=== PATIENT | male | born 1945 | race Caucasian/White ===

== ENCOUNTER 2016-10-29 22:39 | Emergency (ER) | payer MEDICARE ==
[~2016-10-29] VITALS: Ht 160 cm; Wt 81.6 kg
[2016-10-29] MEDS ORDERED: PIOG45TA16 (23:14)
[2016-10-29] MEDS ORDERED: FOLI1TAB16 (23:14)
[2016-10-29] MEDS ORDERED: LOVA20TA2 (23:14)
[2016-10-29] MEDS ORDERED: SITA100T (23:14)
[2016-10-29] MEDS ORDERED: ATEN100T (23:14)
[2016-10-29] MEDS ORDERED: AMLO5TAB2 (23:15)
--- NOTE | 2016-10-29 23:28 | NUR ---
Patient is able to communicate in sign language. Daughter is present , states she will not translate. supervisor [facility] aware. Awaiting translation services.
--- NOTE | 2016-10-30 02:01 | NUR ---
Patient discharged to home in stable conditon. Written and verbal after care instructions given. Patient verbalizes understanding of instructions. Ambulated from ER with stable gait. All belongings with patient.
[2016-10-30 02:03] VITALS: BP 136/74
== END 2016-10-30 02:04 | disposition home or self-care (01) ==
LOC: ER 22:41
DX: R04.0 Epistaxis (principal); I10 Essential (primary) hypertension; E11.9 Type 2 diabetes mellitus without complications; E78.00 Pure hypercholesterolemia, unspecified; C50.921 Malignant neoplasm of unspecified site of right male breast; D64.9 Anemia, unspecified; Z79.82 Long term (current) use of aspirin
CPT/HCPCS: A4663

== ENCOUNTER 2023-09-16 10:39 | Inpatient (IN) | payer BC, MEDICARE ==
[~2023-09-16] VITALS: Ht 162.6 cm; Wt 68.0 kg
[2023-09-16] MEDS: BLOOD SUGAR DIAGNOSTIC 1 EACH STRIP VI SCH (06:47)
[~2023-09-16 10:39] MED LIST: AMLO-212; ATEN100T; FOLI1TAB94; LOVA20TA2; PIOG45TA65; SITA100T
[2023-09-16] MEDS: IV NORMAL SALINE 500 ML BAG IV ONE (11:08)
[2023-09-16 11:24] LABS: ABG HCO3 27.7 mmol/L (22.0-26.0); ABG PCO2 38.5 mmHg (35.0-48.0); ABG PH 7.475 (7.340-7.440); ABG PO2 46.7 mmHg (75.0-100.0); ABG SITE RIGHT RADIAL; ABG TOTAL HEMOGLOBIN 12.5 G/dL (12.0-16.0); AaDO2 85.6 mmHg; COHb 0.6 % (0.0-3.9); MetHb 0.1 % (0.0-1.5); O2Hb 84.9 % (94.0-97.0)
[2023-09-16 11:30] LABS: BASOPHILS % (AUTO) 0.1 % (0.0-2.0); HEMATOCRIT 34.1 % (31.2-41.9); HEMOGLOBIN 11.4 g/dL (10.9-14.3); LYMPHOCYTES # (AUTO) 0.1 K/uL (0.8-4.8); LYMPHOCYTES % (AUTO) 1.2 % (20.5-51.5); MEAN CORPUSCULAR HEMOGLOBIN 28.7 uug (24.7-32.8); MEAN CORPUSCULAR HGB CONC 34 g/dL (32.3-35.6); MEAN CORPUSCULAR VOLUME 85.8 fL (75.5-95.3); MONOCYTES # (AUTO) 0.2 K/uL (0.1-1.30); MONOCYTES % (AUTO) 2.1 % (0.0-11.0); NEUTROPHILS # (AUTO) 8.4 K/uL (1.8-8.9); NEUTROPHILS % (AUTO) 96.6 % (38.5-71.5); PLATELET COUNT (AUTO) 126 K/uL (179-408); RED BLOOD CELL COUNT(AUTO) 3.97 MIL/uL (3.63-4.92); RED CELL DISTRIBUTION WIDTH 14.4 % (12.3-17.7); WHITE BLOOD COUNT (AUTO) 8.7 K/uL (3.8-11.8)
[2023-09-16] MEDS ORDERED: EMPA25TA PO (11:32)
[2023-09-16] MEDS ORDERED: LOVA20TA2 PO (11:32)
[2023-09-16] MEDS ORDERED: ANAS1TAB50 PO (11:32)
[2023-09-16] MEDS ORDERED: FURO40TA5 PO (11:32)
[2023-09-16] MEDS ORDERED: SITA100T PO (11:32)
[2023-09-16] MEDS ORDERED: ATEN100T PO (11:32)
[2023-09-16] MEDS ORDERED: AMLO10TA59 PO (11:32)
[2023-09-16] MEDS ORDERED: HYDR-894 PO (11:32)
[2023-09-16 11:41] LABS: CALCIUM 9.3 mg/dL (8.5-10.1); CARBON DIOXIDE 28 mmol/L (21-32); CHLORIDE 99 mmol/L (98-107); CREATININE 1.6 mg/dL (0.6-1.3); GLUCOSE 206 mg/dL (74-106); SODIUM SERUM 136 mmol/L (136-145); UREA NITROGEN, BLOOD 37 mg/dL (7-18)
[2023-09-16 11:47] LABS: DIFFERENTIAL COMMENT 1
[2023-09-16 11:54] LABS: ALANINE AMINOTRANSFERASE 15 U/L (14-59); ALBUMIN 3.2 g/dL (3.4-5.0); ALKALINE PHOSPHATASE 88 U/L (50-136); ASPARTATE AMINOTRANSFERASE 14 U/L (15-37); BILIRUBIN,DIRECT 0.2 mg/dL (0.0-0.2); BILIRUBIN,TOTAL 0.5 mg/dL (0.2-1.0); NT-PRO BNP 3524 pg/mL (0-125); TOTAL PROTEIN, SERUM 7.9 g/dL (6.4-8.2)
[2023-09-16] MEDS ORDERED: ONDANSETRON 4 MG/2 ML VIAL ONE (14:25)
[2023-09-16] MEDS ORDERED: MORPHINE SULFATE 2 MG/1 ML DISP.SYRIN ONE (14:25)
[2023-09-16] MEDS: ONDANSETRON 4 MG/2 ML VIAL IV ONE (14:26)
[2023-09-16] MEDS: MORPHINE SULFATE 2 MG/1 ML DISP.SYRIN IV ONE (14:28)
[2023-09-16] MEDS ORDERED: LORA0.5T48 PO (15:16)
[2023-09-16] MEDS: MORPHINE SULFATE 4 MG/1 ML DISP.SYRIN IV ONE (15:34)
[2023-09-16] MEDS ORDERED: MORPHINE SULFATE 2 MG/1 ML DISP.SYRIN IV PRN (16:00)
[2023-09-16] MEDS ORDERED: DEXTROSE 50% 50 ML DISP.SYRIN IV PRN (16:00)
[2023-09-16] MEDS: CEFTRIAXONE 2 G in IV DEXTROSE 5% 100 ML IV SCH (16:00)
[2023-09-16] MEDS ORDERED: REMEDY ESSENTIAL ZINC PASTE 113 GM TP PRN (16:00)
[2023-09-16] MEDS ORDERED: ONDANSETRON 4 MG/2 ML VIAL IV PRN (16:00)
[2023-09-16] MEDS: INSULIN REGULAR, HUMAN 300 UNIT/3 ML VIAL SQ PRN (16:45)
[2023-09-16] MEDS: IV NS 1000 ML 1,000 ML IV ONE (18:32)
[2023-09-16] MEDS ORDERED: IV NORMAL SALINE 250 ML IV ONE (20:05)
[2023-09-16] MEDS ORDERED: SWABABLE VALVE TRANSFER SET EA MC ONE (20:05)
[2023-09-16] MEDS ORDERED: IOHEXOL 350 100 ML INFUS..BTL ONE (20:06)
[2023-09-16] MEDS ORDERED: HEPARIN SODIUM,PORCINE 5,000 UNITS/ML VIAL SQ SCH (21:00)
[2023-09-16] MEDS ORDERED: DOXYCYCLINE HYCLATE IV 100 MG in IV DEXTROSE 5% 100 ML IV SCH (21:00)
[2023-09-16 21:15] VITALS: BP 108/47; TEMP 98.9; O2SAT 83
[2023-09-16] MEDS: BENZONATATE 100 MG CAPSULE PO SCH (21:57)
[2023-09-16] MEDS: GUAIFENESIN/DEXTROMETHORPHAN 5 ML UDC PO PRN (21:57)
[2023-09-16] MEDS ORDERED: VANCOMYCIN IV 200 ML ONE (22:06)
[2023-09-16] MEDS ORDERED: CEFEPIME HCL 1 G VIAL ONE (22:06)
[2023-09-16] MEDS: CEFEPIME HCL 2 GM in IV DEXTROSE 5% 100 ML IV SCH (22:12)
[2023-09-16 22:16] VITALS: O2SAT 87
[2023-09-16] MEDS: VANCOMYCIN IV 1,250 MG in IV DEXTROSE 5% 250 ML IV ONE (22:21)
[2023-09-16] MEDS: ACETAMINOPHEN 325 MG TABLET PO PRN (22:26)
[2023-09-17] VITALS (9 sets, daily range): BP systolic 87–145; BP diastolic 20–65; TEMP 97.6–99; O2SAT 88–95
[2023-09-17] MEDS: ENOXAPARIN SODIUM 60 MG/0.6 ML DISP.SYRIN SQ SCH (00:50)
[2023-09-17 06:36] LABS: BASOPHILS # (AUTO) 0.1 K/UL (0.0-0.2); BASOPHILS % (AUTO) 0.6 % (0.0-2.0); HEMATOCRIT 27.7 % (31.2-41.9); HEMOGLOBIN 9.3 g/dL (10.9-14.3); LYMPHOCYTES # (AUTO) 0.3 K/uL (0.8-4.8); MEAN CORPUSCULAR HGB CONC 34 g/dL (32.3-35.6); MEAN CORPUSCULAR VOLUME 86.7 fL (75.5-95.3); MONOCYTES # (AUTO) 0.3 K/uL (0.1-1.30); MONOCYTES % (AUTO) 1.8 % (0.0-11.0); NEUTROPHILS # (AUTO) 15.4 K/uL (1.8-8.9); NEUTROPHILS % (AUTO) 95.6 % (38.5-71.5); PLATELET COUNT (AUTO) 83 K/uL (179-408); RED BLOOD CELL COUNT(AUTO) 3.19 MIL/uL (3.63-4.92); RED CELL DISTRIBUTION WIDTH 14.8 % (12.3-17.7); WHITE BLOOD COUNT (AUTO) 16.1 K/uL (3.8-11.8)
[2023-09-17] MEDS: PANTOPRAZOLE SODIUM 40 MG TABLET.DR PO SCH (06:38)
[2023-09-17] MEDS ORDERED: ALBUTEROL SULFATE 2.5 MG/3 ML NEBU NEB SCH (07:35)
[2023-09-17] MEDS ORDERED: IPRATROPIUM BROMIDE 0.5 MG/2.5 ML NEBU NEB SCH (07:35)
[2023-09-17 07:48] LABS: DIFFERENTIAL COMMENT 1
[2023-09-17 08:35] LABS: CALCIUM 8.3 mg/dL (8.5-10.1); CARBON DIOXIDE 25 mmol/L (21-32); CHLORIDE 104 mmol/L (98-107); CHOLESTEROL 104 mg/dL (<200); GLUCOSE 138 mg/dL (74-106); HDL CHOLESTEROL 62 mg/dL (40-60); MAGNESIUM 1.8 mg/dL (1.8-2.4); PHOSPHOROUS 4.7 mg/dL (2.5-4.9); POTASSIUM 3.8 mmol/L (3.5-5.1); SODIUM SERUM 140 mmol/L (136-145); TRIGLYCERIDES 52 MG/DL (30-150); UREA NITROGEN, BLOOD 44 mg/dL (7-18)
[2023-09-17] MEDS: ANASTROZOLE 1 MG TABLET PO SCH (08:36)
[2023-09-17] MEDS ORDERED: AMLODIPINE 10 MG TABLET PO SCH (09:00)
[2023-09-17] MEDS: levoFLOXacin 750MG/D5W 150 ML IV SCH (09:22)
[2023-09-17 09:28] LABS: THYROID STIMULATING HORMONE 1.084 mIU/mL (0.358-3.740)
[2023-09-17] MEDS: IV LACTATED RINGERS SOLUTION 1,000 ML IV PRN (11:20)
[2023-09-17] MEDS: MIDODRINE HCL 5 MG TABLET PO SCH (11:25)
[2023-09-17] MEDS: METRONIDAZOLE 500 MG/NS 100ML 500 MG in PREMIXED 1 EACH IV SCH (13:00)
[2023-09-17 14:22] LABS: BAND % (MANUAL) 20 % (0-10); LYMPHOCYTES % (MANUAL) 3 % (20-40); METAMYELOCYTES % 20 % (0-1); MONOCYTES % (MANUAL) 1 % (2-10); MYELOCYTES % 8 % (0-0); NEUTROPHILS % (MANUAL) 48 % (42-75); PLATELET ESTIMATE DECREASED
[2023-09-17 14:23] LABS: ANISOCYTOSIS 1+
[2023-09-17] MEDS ORDERED: FOLI1TAB94 PO (15:02)
[2023-09-17] MEDS ORDERED: PIOG45TA5 PO (15:02)
[2023-09-17] MEDS ORDERED: TRAV5DRO EACHEYE (15:02)
[2023-09-17] MEDS ORDERED: LEVO5DRO6 EACHEYE (15:02)
[2023-09-17] MEDS ORDERED: MELA10TA PO (15:02)
[2023-09-17 16:36] LABS: *BILIRUBIN,URIN NEGATIVE (NEGATIVE); *BLOOD, URINE NEGATIVE (NEGATIVE); *CLARITY,URINE CLEAR (CLEAR); *COLOR,URINE YELLOW (YELLOW); *KETONES,URINE NEGATIVE (NEGATIVE); *PROTEIN,URINE 2+ (NEGATIVE); *UROBILINOGEN,URINE 0.2 E.U./dl (NORMAL); LEUKOCYTE ESTERASE ,URINE NEGATIVE (NEGATIVE); NITRITE, URINE NEGATIVE (NEGATIVE); PH,URINE 5.5 (5.0-8.0)
[2023-09-17 16:37] LABS: UGLUCOSE 3+ (NEGATIVE)
[2023-09-17 16:39] LABS: *CREATININE,URINE 49.9 mg/dL (30-125)
[2023-09-17] MEDS: BENZOCAINE/MENTH/CETYLPYRD LOZENGE MM PRN (16:39)
[2023-09-17 16:46] LABS: BACTERIA,URINE FEW /HPF (NONE SEEN); RBC,URINE NONE SEEN /HPF (0-3); SQUAMOUS EPITHELIAL CELL,UR FEW /HPF (NONE SEEN); WBC,URINE 0-3 /HPF (0-3)
[2023-09-17] MEDS: ENOXAPARIN SODIUM 30 MG/0.3 ML DISP.SYRIN SQ SCH (21:03)
[2023-09-17] MEDS: HYDROCODONE/APAP 5-325MG TABLET PO PRN (23:49)
[2023-09-18] VITALS (11 sets, daily range): BP systolic 97–143; BP diastolic 27–50; TEMP 97.8–99.1; O2SAT 91–98
[2023-09-18 06:32] LABS: BASOPHILS # (AUTO) 0.1 K/UL (0.0-0.2); BASOPHILS % (AUTO) 0.8 % (0.0-2.0); EOSINOPHILS # (AUTO) 0.1 K/uL (0.0-0.7); EOSINOPHILS % (AUTO) 0.5 % (0.0-7.0); HEMATOCRIT 24.1 % (31.2-41.9); HEMOGLOBIN 8.1 g/dL (10.9-14.3); LYMPHOCYTES # (AUTO) 0.3 K/uL (0.8-4.8); LYMPHOCYTES % (AUTO) 1.8 % (20.5-51.5); MEAN CORPUSCULAR HEMOGLOBIN 28.7 uug (24.7-32.8); MEAN CORPUSCULAR HGB CONC 34 g/dL (32.3-35.6); MEAN CORPUSCULAR VOLUME 85.3 fL (75.5-95.3); MONOCYTES # (AUTO) 0.2 K/uL (0.1-1.30); MONOCYTES % (AUTO) 1.1 % (0.0-11.0); NEUTROPHILS # (AUTO) 17.5 K/uL (1.8-8.9); NEUTROPHILS % (AUTO) 95.8 % (38.5-71.5); PLATELET COUNT (AUTO) 81 K/uL (179-408); RED BLOOD CELL COUNT(AUTO) 2.83 MIL/uL (3.63-4.92); RED CELL DISTRIBUTION WIDTH 14.6 % (12.3-17.7); WHITE BLOOD COUNT (AUTO) 18.3 K/uL (3.8-11.8)
[2023-09-18 06:45] LABS: DIFFERENTIAL COMMENT 1
[2023-09-18 07:06] LABS: VANCOMYCIN,RANDOM 12.8 ug/mL (20.0-30.0)
[2023-09-18 07:52] LABS: ALANINE AMINOTRANSFERASE 11 U/L (14-59); ALBUMIN 2.1 g/dL (3.4-5.0); ALKALINE PHOSPHATASE 52 U/L (50-136); ASPARTATE AMINOTRANSFERASE 20 U/L (15-37); BILIRUBIN,TOTAL 0.4 mg/dL (0.2-1.0); CALCIUM 7.9 mg/dL (8.5-10.1); CARBON DIOXIDE 28 mmol/L (21-32); CHLORIDE 101 mmol/L (98-107); CREATININE 2.3 mg/dL (0.6-1.3); GLUCOSE 96 mg/dL (74-106); MAGNESIUM 1.7 mg/dL (1.8-2.4); PHOSPHOROUS 4.6 mg/dL (2.5-4.9); POTASSIUM 4.1 mmol/L (3.5-5.1); SODIUM SERUM 137 mmol/L (136-145); TOTAL PROTEIN, SERUM 5.8 g/dL (6.4-8.2); UREA NITROGEN, BLOOD 55 mg/dL (7-18)
[2023-09-18 07:54] LABS: C-REACTIVE PROTEIN 36.13 mg/dL (0.00-0.30)
[2023-09-18 07:57] LABS: CREATINE KINASE, TOTAL 82 U/L (26-192)
[2023-09-18] MEDS: IPRATROPIUM BROMIDE 0.5 MG/2.5 ML NEBU NEB PRN (08:11)
[2023-09-18] MEDS: ALBUTEROL SULFATE 2.5 MG/3 ML NEBU NEB PRN (08:11)
[2023-09-18] MEDS: VANCOMYCIN IV 1,000 MG in IV DEXTROSE 5% 250 ML IV ONE (08:17)
[2023-09-18] MEDS: MIDODRINE HCL 5 MG TABLET PO SCH (08:40)
[2023-09-18 08:43] LABS: *RHEUMATOID FACTOR SCREEN NEGATIVE (NEGATIVE)
[2023-09-18 09:24] LABS: HIV-1 p24 ANTIGEN NON REACTIVE (NONREACTIVE); HIV-1/2 ANTIBODY NON REACTIVE (NONREACTIVE)
[2023-09-18] MEDS: MAGNESIUM OXIDE 400 MG TABLET PO ONE (10:21)
[2023-09-18] MEDS: MIRALAX 17 GM POWD.PACK PO SCH (12:56)
[2023-09-18 13:33] LABS: BAND % (MANUAL) 10 % (0-10); LYMPHOCYTES % (MANUAL) 3 % (20-40); METAMYELOCYTES % 10 % (0-1); MONOCYTES % (MANUAL) 5 % (2-10); NEUTROPHILS % (MANUAL) 72 % (42-75); PLATELET ESTIMATE DECREASED
[2023-09-18] MEDS: SOD FERRIC GLUC COMPLX/SUCROSE 125 MG in IV NORMAL SALINE 100 ML IV SCH (14:00)
[2023-09-18 14:31] LABS: HEMATOCRIT 22.8 % (31.2-41.9); HEMOGLOBIN 7.5 g/dL (10.9-14.3)
[2023-09-18] MEDS: LATANOPROST OPHT DROP 2.5 ML BOTTLE EACHEYE SCH (20:52)
[2023-09-18] MEDS ORDERED: ENOXAPARIN SODIUM 30 MG/0.3 ML DISP.SYRIN SQ SCH (21:00)
[2023-09-18] MEDS: ONDANSETRON 4 MG/2 ML VIAL IV PRN (22:19)
[2023-09-19] VITALS (12 sets, daily range): BP systolic 94–144; BP diastolic 34–62; TEMP 97.2–100.8; O2SAT 15–98
[2023-09-19] MEDS: DOCUSATE SODIUM 100 MG CAPSULE PO SCH (00:12)
[2023-09-19] MEDS: FERROUS SULFATE 325 MG TABEC PO SCH (00:14)
[2023-09-19 07:16] LABS: ALANINE AMINOTRANSFERASE 18 U/L (14-59); ALBUMIN 1.8 g/dL (3.4-5.0); ALKALINE PHOSPHATASE 77 U/L (50-136); ASPARTATE AMINOTRANSFERASE 22 U/L (15-37); BILIRUBIN,TOTAL 0.4 mg/dL (0.2-1.0); CALCIUM 8.3 mg/dL (8.5-10.1); CARBON DIOXIDE 24 mmol/L (21-32); CHLORIDE 103 mmol/L (98-107); GLUCOSE 130 mg/dL (74-106); POTASSIUM 4.1 mmol/L (3.5-5.1); SODIUM SERUM 136 mmol/L (136-145); TOTAL PROTEIN, SERUM 6.1 g/dL (6.4-8.2); UREA NITROGEN, BLOOD 53 mg/dL (7-18)
[2023-09-19 07:34] LABS: BASOPHILS % (AUTO) 0.2 % (0.0-2.0); DIFFERENTIAL COMMENT 0; EOSINOPHILS % (AUTO) 0.1 % (0.0-7.0); HEMATOCRIT 24.3 % (31.2-41.9); HEMOGLOBIN 8.1 g/dL (10.9-14.3); LYMPHOCYTES # (AUTO) 0.2 K/uL (0.8-4.8); MEAN CORPUSCULAR HEMOGLOBIN 28.3 uug (24.7-32.8); MEAN CORPUSCULAR HGB CONC 34 g/dL (32.3-35.6); MEAN CORPUSCULAR VOLUME 84.7 fL (75.5-95.3); MONOCYTES # (AUTO) 0.1 K/uL (0.1-1.30); MONOCYTES % (AUTO) 0.4 % (0.0-11.0); NEUTROPHILS # (AUTO) 20.6 K/uL (1.8-8.9); NEUTROPHILS % (AUTO) 98.3 % (38.5-71.5); PLATELET COUNT (AUTO) 89 K/uL (179-408); RED BLOOD CELL COUNT(AUTO) 2.87 MIL/uL (3.63-4.92); RED CELL DISTRIBUTION WIDTH 14.5 % (12.3-17.7); WHITE BLOOD COUNT (AUTO) 20.9 K/uL (3.8-11.8)
[2023-09-19] MEDS ORDERED: levoFLOXacin 750MG/D5W 150 ML IV SCH (09:00)
[2023-09-19] MEDS: FAMOTIDINE 20 MG TABLET PO SCH (09:00)
[2023-09-19] MEDS: LEVOBUNOLOL 0.5% EACHEYE SCH (10:58)
[2023-09-19] MEDS: AMIODARONE HCL IV 150 MG in IV DEXTROSE 5% 100 ML IV ONE (11:01)
[2023-09-19] MEDS: AMIODARONE HCL IV 450 MG in IV DEXTROSE 5% 250 ML IV PRN (11:02)
[2023-09-19 13:35] LABS: BAND % (MANUAL) 37 % (0-10); LYMPHOCYTES % (MANUAL) 2 % (20-40); MONOCYTES % (MANUAL) 1 % (2-10); NEUTROPHILS % (MANUAL) 56 % (42-75)
[2023-09-19 13:36] LABS: METAMYELOCYTES % 4 % (0-1); PLATELET ESTIMATE DECREASED
[2023-09-20] VITALS (13 sets, daily range): BP systolic 122–148; BP diastolic 47–66; TEMP 97.4–98.8; O2SAT 94–99
[2023-09-20 01:10] LABS: CANCER ANTIGEN 15-3 22.4 U/mL (0.0-25.0)
[2023-09-20 03:06] LABS: HEPATITIS C VIRUS ANTIBODY Non Reactive (Non Reactive)
[2023-09-20 08:03] LABS: CALCIUM 8.5 mg/dL (8.5-10.1); CARBON DIOXIDE 23 mmol/L (21-32); CHLORIDE 106 mmol/L (98-107); CREATININE 1.7 mg/dL (0.6-1.3); GLUCOSE 180 mg/dL (74-106); MAGNESIUM 2.1 mg/dL (1.8-2.4); PHOSPHOROUS 2.4 mg/dL (2.5-4.9); POTASSIUM 3.8 mmol/L (3.5-5.1); SODIUM SERUM 139 mmol/L (136-145); UREA NITROGEN, BLOOD 55 mg/dL (7-18); VANCOMYCIN,RANDOM 14.9 ug/mL (20.0-30.0)
[2023-09-20 08:28] LABS: BASOPHILS % (AUTO) 0.3 % (0.0-2.0); EOSINOPHILS % (AUTO) 0.2 % (0.0-7.0); HEMATOCRIT 26.1 % (31.2-41.9); HEMOGLOBIN 8.9 g/dL (10.9-14.3); LYMPHOCYTES # (AUTO) 0.2 K/uL (0.8-4.8); LYMPHOCYTES % (AUTO) 2.2 % (20.5-51.5); MEAN CORPUSCULAR HEMOGLOBIN 28.6 uug (24.7-32.8); MEAN CORPUSCULAR HGB CONC 34 g/dL (32.3-35.6); MONOCYTES # (AUTO) 0.2 K/uL (0.1-1.30); MONOCYTES % (AUTO) 1.9 % (0.0-11.0); NEUTROPHILS # (AUTO) 7.8 K/uL (1.8-8.9); NEUTROPHILS % (AUTO) 95.4 % (38.5-71.5); PLATELET COUNT (AUTO) 74 K/uL (179-408); RED BLOOD CELL COUNT(AUTO) 3.11 MIL/uL (3.63-4.92); RED CELL DISTRIBUTION WIDTH 14.6 % (12.3-17.7); WHITE BLOOD COUNT (AUTO) 8.2 K/uL (3.8-11.8)
[2023-09-20 08:35] LABS: DIFFERENTIAL COMMENT 1
[2023-09-20] MEDS: VANCOMYCIN IV 1,000 MG in IV DEXTROSE 5% 250 ML IV ONE (08:56)
[2023-09-20 14:10] LABS: HEPATITIS B SURFACE AB, QUAL Non Reactive (.); HEPATITIS B SURFACE AG Negative (Negative)
[2023-09-20 16:06] LABS: *IMMUNOGLOBULIN G, SERUM 821 mg/dL (586-1602); IMMUNOGLOBULIN A, SERUM 117 mg/dL (64-422); IMMUNOGLOBULIN M, SERUM 67 mg/dL (26-217)
[2023-09-20] MEDS: NEUTRA PHOS PACKET PO ONE (16:27)
[2023-09-20] MEDS: PIPERACILLIN SODIUM/TAZOBACTAM 3.375 G in IV DEXTROSE 5% 100 ML IV SCH (21:38)
[2023-09-20] MEDS ORDERED: PIPERACILLIN SODIUM/TAZOBACTAM 3.375 G in IV DEXTROSE 5% 50 ML IV SCH (22:00)
[2023-09-21] VITALS (10 sets, daily range): BP systolic 112–173; BP diastolic 45–73; TEMP 97.9–99.8; O2SAT 93–97
[2023-09-21 06:58] LABS: BASOPHILS % (AUTO) 0.4 % (0.0-2.0); EOSINOPHILS % (AUTO) 0.4 % (0.0-7.0); HEMATOCRIT 27.6 % (31.2-41.9); HEMOGLOBIN 9.4 g/dL (10.9-14.3); LYMPHOCYTES # (AUTO) 0.3 K/uL (0.8-4.8); LYMPHOCYTES % (AUTO) 5.1 % (20.5-51.5); MEAN CORPUSCULAR HEMOGLOBIN 28.8 uug (24.7-32.8); MEAN CORPUSCULAR HGB CONC 34 g/dL (32.3-35.6); MEAN CORPUSCULAR VOLUME 85.1 fL (75.5-95.3); MONOCYTES # (AUTO) 0.2 K/uL (0.1-1.30); MONOCYTES % (AUTO) 4.1 % (0.0-11.0); NEUTROPHILS # (AUTO) 5.3 K/uL (1.8-8.9); PLATELET COUNT (AUTO) 75 K/uL (179-408); RED BLOOD CELL COUNT(AUTO) 3.24 MIL/uL (3.63-4.92); RED CELL DISTRIBUTION WIDTH 14.7 % (12.3-17.7); WHITE BLOOD COUNT (AUTO) 5.8 K/uL (3.8-11.8)
[2023-09-21 07:38] LABS: ALBUMIN 1.8 g/dL (3.4-5.0); ALKALINE PHOSPHATASE 68 U/L (50-136); ASPARTATE AMINOTRANSFERASE 18 U/L (15-37); BILIRUBIN,TOTAL 0.7 mg/dL (0.2-1.0); CALCIUM 8.6 mg/dL (8.5-10.1); CARBON DIOXIDE 25 mmol/L (21-32); CHLORIDE 105 mmol/L (98-107); CREATININE 1.6 mg/dL (0.6-1.3); DIFFERENTIAL COMMENT 1; GLUCOSE 167 mg/dL (74-106); MAGNESIUM 2.1 mg/dL (1.8-2.4); PHOSPHOROUS 2.6 mg/dL (2.5-4.9); POTASSIUM 3.7 mmol/L (3.5-5.1); SODIUM SERUM 140 mmol/L (136-145); UREA NITROGEN, BLOOD 50 mg/dL (7-18)
[2023-09-21 07:51] LABS: ALANINE AMINOTRANSFERASE < 6 U/L (14-59)
[2023-09-21 09:07] LABS: CARCINOEMBRYONIC AG (CEA) 3.3 ng/mL (0.0-4.7)
[2023-09-21 11:11] LABS: FREE KAPPA LT CHAINS SERUM 41.3 mg/L (3.3-19.4); FREE LAMBDA LT CHAIN SERUM 27.1 mg/L (5.7-26.3); KAPPA/LAMBDA RATIO SERUM 1.52 (0.26-1.65)
[2023-09-21] MEDS: DILTIAZEM HCL 30 MG TABLET PO SCH (11:42)
[2023-09-21 14:09] LABS: A/G RATIO 0.8 (0.7-1.7); ALBUMIN 2.4 g/dL (2.9-4.4); ALPHA-1-GLOBULIN 0.5 g/dL (0.0-0.4); BETA GLOBULIN 0.7 g/dL (0.7-1.3); GAMMA GLOBULIN 0.8 g/dL (0.4-1.8); M-SPIKE Not Observed g/dL (Not Observed)
[2023-09-21 15:10] LABS: BAND % (MANUAL) 9 % (0-10); LYMPHOCYTES % (MANUAL) 6 % (20-40); MONOCYTES % (MANUAL) 3 % (2-10); NEUTROPHILS % (MANUAL) 82 % (42-75); PLATELET ESTIMATE DECREASED
[2023-09-21 15:11] LABS: *ANTI-SCLERODERMA-70 AB <0.2 AI (0.0-0.9); *RNP ANTIBODIES <0.2 AI (0.0-0.9); *SJOGREN'S ANTI-SS-A 0.2 AI (0.0-0.9); *SJOGREN'S ANTI-SS-B <0.2 AI (0.0-0.9); *SMITH ANTIBODIES <0.2 AI (0.0-0.9); ANTI-DNA(DS) AB, QN <1 IU/mL (0-9); ANTI-NUCLEAR AB DIRECT Negative (Negative)
[2023-09-21] MEDS: ENOXAPARIN SODIUM 60 MG/0.6 ML DISP.SYRIN SQ SCH (15:28)
[2023-09-21] MEDS: NEPRO (VANILLA) 237 ML CAN PO SCH (16:58)
[2023-09-22] VITALS (12 sets, daily range): BP systolic 98–139; BP diastolic 45–57; TEMP 97.9–98.9; O2SAT 95–100
[2023-09-22 06:48] LABS: BASOPHILS % (AUTO) 0.5 % (0.0-2.0); EOSINOPHILS % (AUTO) 0.3 % (0.0-7.0); HEMOGLOBIN 9.2 g/dL (10.9-14.3); LYMPHOCYTES # (AUTO) 0.6 K/uL (0.8-4.8); LYMPHOCYTES % (AUTO) 6.2 % (20.5-51.5); MEAN CORPUSCULAR HEMOGLOBIN 29.4 uug (24.7-32.8); MEAN CORPUSCULAR HGB CONC 34 g/dL (32.3-35.6); MEAN CORPUSCULAR VOLUME 86.1 fL (75.5-95.3); MONOCYTES # (AUTO) 0.7 K/uL (0.1-1.30); MONOCYTES % (AUTO) 7.3 % (0.0-11.0); NEUTROPHILS # (AUTO) 7.7 K/uL (1.8-8.9); NEUTROPHILS % (AUTO) 85.7 % (38.5-71.5); PLATELET COUNT (AUTO) 76 K/uL (179-408); RED BLOOD CELL COUNT(AUTO) 3.13 MIL/uL (3.63-4.92); RED CELL DISTRIBUTION WIDTH 15.2 % (12.3-17.7)
[2023-09-22 07:08] LABS: DIFFERENTIAL COMMENT 1
[2023-09-22 07:18] LABS: CALCIUM 8.3 mg/dL (8.5-10.1); CARBON DIOXIDE 26 mmol/L (21-32); CHLORIDE 107 mmol/L (98-107); CREATININE 1.6 mg/dL (0.6-1.3); GLUCOSE 164 mg/dL (74-106); PHOSPHOROUS 2.6 mg/dL (2.5-4.9); SODIUM SERUM 140 mmol/L (136-145); UREA NITROGEN, BLOOD 46 mg/dL (7-18)
[2023-09-22 07:28] LABS: C-REACTIVE PROTEIN 18.63 mg/dL (0.00-0.30)
[2023-09-23] VITALS (12 sets, daily range): BP systolic 101–150; BP diastolic 45–62; TEMP 97.4–99; O2SAT 94–100
[2023-09-23 08:44] LABS: ALANINE AMINOTRANSFERASE 12 U/L (14-59); ALKALINE PHOSPHATASE 55 U/L (50-136); ASPARTATE AMINOTRANSFERASE 6 U/L (15-37); BILIRUBIN,TOTAL 0.5 mg/dL (0.2-1.0); CALCIUM 8.2 mg/dL (8.5-10.1); CARBON DIOXIDE 26 mmol/L (21-32); CHLORIDE 105 mmol/L (98-107); CREATININE 1.7 mg/dL (0.6-1.3); GLUCOSE 166 mg/dL (74-106); PHOSPHOROUS 3.3 mg/dL (2.5-4.9); POTASSIUM 3.9 mmol/L (3.5-5.1); SODIUM SERUM 140 mmol/L (136-145); TOTAL PROTEIN, SERUM 5.7 g/dL (6.4-8.2); UREA NITROGEN, BLOOD 46 mg/dL (7-18)
[2023-09-23 08:49] LABS: ALBUMIN 1.5 g/dL (3.4-5.0)
[2023-09-23] MEDS: DILTIAZEM HCL CD 120 MG CAP.SR.24H PO SCH (09:11)
[2023-09-23 09:28] LABS: BASOPHILS # (AUTO) 0.1 K/UL (0.0-0.2); BASOPHILS % (AUTO) 0.8 % (0.0-2.0); DIFFERENTIAL COMMENT 1; EOSINOPHILS % (AUTO) 0.6 % (0.0-7.0); HEMOGLOBIN 8.7 g/dL (10.9-14.3); LYMPHOCYTES # (AUTO) 0.5 K/uL (0.8-4.8); LYMPHOCYTES % (AUTO) 6.8 % (20.5-51.5); MEAN CORPUSCULAR HEMOGLOBIN 29.2 uug (24.7-32.8); MEAN CORPUSCULAR HGB CONC 35 g/dL (32.3-35.6); MEAN CORPUSCULAR VOLUME 84.2 fL (75.5-95.3); MONOCYTES # (AUTO) 0.4 K/uL (0.1-1.30); MONOCYTES % (AUTO) 5.8 % (0.0-11.0); PLATELET COUNT (AUTO) 102 K/uL (179-408); RED BLOOD CELL COUNT(AUTO) 2.97 MIL/uL (3.63-4.92)
[2023-09-23] MEDS: PROTEIN SUPPLEMENT (PROSTAT) 30 ML LIQUID PO SCH (12:35)
[2023-09-23 19:29] LABS: PLATELET ESTIMATE DECREASED
[2023-09-23 19:30] LABS: BAND % (MANUAL) 1 % (0-10); EOSINOPHILS % (MANUAL) 1 % (0-8); LYMPHOCYTES % (MANUAL) 10 % (20-40); METAMYELOCYTES % 3 % (0-1); MONOCYTES % (MANUAL) 4 % (2-10); NEUTROPHILS % (MANUAL) 81 % (42-75)
[2023-09-24] VITALS (9 sets, daily range): BP systolic 118–152; BP diastolic 39–74; TEMP 97.5–98.9; O2SAT 98–100
[2023-09-24 08:13] LABS: BASOPHILS % (AUTO) 0.4 % (0.0-2.0); EOSINOPHILS % (AUTO) 0.4 % (0.0-7.0); HEMATOCRIT 24.3 % (31.2-41.9); HEMOGLOBIN 8.3 g/dL (10.9-14.3); LYMPHOCYTES # (AUTO) 0.6 K/uL (0.8-4.8); LYMPHOCYTES % (AUTO) 10.1 % (20.5-51.5); MEAN CORPUSCULAR HEMOGLOBIN 29.1 uug (24.7-32.8); MEAN CORPUSCULAR HGB CONC 34 g/dL (32.3-35.6); MEAN CORPUSCULAR VOLUME 85.7 fL (75.5-95.3); MONOCYTES # (AUTO) 0.3 K/uL (0.1-1.30); MONOCYTES % (AUTO) 6.1 % (0.0-11.0); NEUTROPHILS # (AUTO) 4.6 K/uL (1.8-8.9); PLATELET COUNT (AUTO) 137 K/uL (179-408); RED BLOOD CELL COUNT(AUTO) 2.84 MIL/uL (3.63-4.92); RED CELL DISTRIBUTION WIDTH 15.1 % (12.3-17.7); WHITE BLOOD COUNT (AUTO) 5.5 K/uL (3.8-11.8)
[2023-09-24 08:26] LABS: DIFFERENTIAL COMMENT 1
[2023-09-24 08:48] LABS: IRON, SERUM 29 ug/dL (50-175)
[2023-09-24 09:09] LABS: ALANINE AMINOTRANSFERASE 10 U/L (14-59); ALBUMIN 1.5 g/dL (3.4-5.0); ALKALINE PHOSPHATASE 51 U/L (50-136); ASPARTATE AMINOTRANSFERASE 22 U/L (15-37); BILIRUBIN,TOTAL 0.4 mg/dL (0.2-1.0); CALCIUM 8.5 mg/dL (8.5-10.1); CARBON DIOXIDE 29 mmol/L (21-32); CHLORIDE 107 mmol/L (98-107); CREATININE 1.9 mg/dL (0.6-1.3); FERRITIN 732 ng/mL (8-252); GLUCOSE 164 mg/dL (74-106); MAGNESIUM 2.3 mg/dL (1.8-2.4); PHOSPHOROUS 4.1 mg/dL (2.5-4.9); POTASSIUM 3.9 mmol/L (3.5-5.1); SODIUM SERUM 140 mmol/L (136-145); TOTAL PROTEIN, SERUM 5.6 g/dL (6.4-8.2); UREA NITROGEN, BLOOD 46 mg/dL (7-18)
[2023-09-24 12:27] LABS: *BILIRUBIN,URIN NEGATIVE (NEGATIVE); *BLOOD, URINE 1+ (NEGATIVE); *CLARITY,URINE CLEAR (CLEAR); *COLOR,URINE LIGHT YELLOW (YELLOW); *KETONES,URINE NEGATIVE (NEGATIVE); *PROTEIN,URINE 1+ (NEGATIVE); *UROBILINOGEN,URINE 0.2 E.U./dl (NORMAL); LEUKOCYTE ESTERASE ,URINE NEGATIVE (NEGATIVE); NITRITE, URINE NEGATIVE (NEGATIVE); PH,URINE 5.5 (5.0-8.0)
[2023-09-24 12:29] LABS: UGLUCOSE 2+ (NEGATIVE)
[2023-09-24 12:36] LABS: *CREATININE,URINE 40.2 mg/dL (30-125); *URINE TOTAL PROTEIN RANDOM 75.6 mg/dL (<150/24HR)
[2023-09-24 13:45] LABS: BACTERIA,URINE RARE /HPF (NONE SEEN); URINE AMORPHOUS URATE MODERATE /HPF
[2023-09-24 13:46] LABS: SQUAMOUS EPITHELIAL CELL,UR MODERATE /HPF (NONE SEEN); WBC,URINE 0-3 /HPF (0-3)
[2023-09-24] MEDS: IV 1/2NS 1000 ML 1,000 ML IV PRN (18:29)
[2023-09-25] VITALS: BP 128/71; TEMP 98.2; O2SAT 98
[2023-09-25 04:00] VITALS: BP 149/53; TEMP 98.1; O2SAT 100
[2023-09-25 07:35] LABS: BASOPHILS % (AUTO) 0.5 % (0.0-2.0); EOSINOPHILS % (AUTO) 0.3 % (0.0-7.0); HEMATOCRIT 27.9 % (31.2-41.9); HEMOGLOBIN 9.3 g/dL (10.9-14.3); LYMPHOCYTES # (AUTO) 0.6 K/uL (0.8-4.8); LYMPHOCYTES % (AUTO) 11.1 % (20.5-51.5); MEAN CORPUSCULAR HEMOGLOBIN 28.8 uug (24.7-32.8); MEAN CORPUSCULAR HGB CONC 33 g/dL (32.3-35.6); MEAN CORPUSCULAR VOLUME 86.4 fL (75.5-95.3); MONOCYTES # (AUTO) 0.2 K/uL (0.1-1.30); MONOCYTES % (AUTO) 4.6 % (0.0-11.0); NEUTROPHILS # (AUTO) 4.2 K/uL (1.8-8.9); NEUTROPHILS % (AUTO) 83.5 % (38.5-71.5); PLATELET COUNT (AUTO) 174 K/uL (179-408); RED BLOOD CELL COUNT(AUTO) 3.23 MIL/uL (3.63-4.92); RED CELL DISTRIBUTION WIDTH 15.4 % (12.3-17.7)
[2023-09-25 07:46] LABS: DIFFERENTIAL COMMENT 1
[2023-09-25 08:00] VITALS: BP 106/52; TEMP 97.5; O2SAT 99
[2023-09-25 08:05] LABS: CALCIUM 8.7 mg/dL (8.5-10.1); CARBON DIOXIDE 27 mmol/L (21-32); CHLORIDE 105 mmol/L (98-107); CREATININE 1.7 mg/dL (0.6-1.3); GLUCOSE 158 mg/dL (74-106); POTASSIUM 3.8 mmol/L (3.5-5.1); SODIUM SERUM 140 mmol/L (136-145); UREA NITROGEN, BLOOD 49 mg/dL (7-18)
[2023-09-25 11:42] VITALS: BP 156/77; TEMP 98.1; O2SAT 98
[2023-09-25 15:46] VITALS: BP 156/54; TEMP 98.3; O2SAT 97
[2023-09-25 21:54] VITALS: BP 165/55; TEMP 98.2; O2SAT 99
[2023-09-25] MEDS: AMLODIPINE 5 MG TABLET PO SCH (22:29)
[2023-09-25 22:40] LABS: *OCCULT BLOOD STOOL POSITIVE (NEGATIVE)
[2023-09-26 01:49] VITALS: BP 162/63; TEMP 98.2; O2SAT 99
[2023-09-26 05:44] VITALS: BP 127/58; TEMP 98.2; O2SAT 100
[2023-09-26 06:38] LABS: BASOPHILS % (AUTO) 0.6 % (0.0-2.0); EOSINOPHILS % (AUTO) 0.3 % (0.0-7.0); HEMATOCRIT 25.1 % (31.2-41.9); HEMOGLOBIN 8.7 g/dL (10.9-14.3); LYMPHOCYTES # (AUTO) 0.6 K/uL (0.8-4.8); LYMPHOCYTES % (AUTO) 13.5 % (20.5-51.5); MEAN CORPUSCULAR HEMOGLOBIN 29.5 uug (24.7-32.8); MEAN CORPUSCULAR HGB CONC 35 g/dL (32.3-35.6); MONOCYTES # (AUTO) 0.2 K/uL (0.1-1.30); MONOCYTES % (AUTO) 5.2 % (0.0-11.0); NEUTROPHILS # (AUTO) 3.7 K/uL (1.8-8.9); NEUTROPHILS % (AUTO) 80.4 % (38.5-71.5); PLATELET COUNT (AUTO) 225 K/uL (179-408); RED BLOOD CELL COUNT(AUTO) 2.96 MIL/uL (3.63-4.92); RED CELL DISTRIBUTION WIDTH 15.3 % (12.3-17.7); WHITE BLOOD COUNT (AUTO) 4.5 K/uL (3.8-11.8)
[2023-09-26 06:55] LABS: DIFFERENTIAL COMMENT 1
[2023-09-26 07:17] LABS: ALANINE AMINOTRANSFERASE 13 U/L (14-59); ALBUMIN 1.7 g/dL (3.4-5.0); ALKALINE PHOSPHATASE 60 U/L (50-136); ASPARTATE AMINOTRANSFERASE 20 U/L (15-37); BILIRUBIN,TOTAL 0.6 mg/dL (0.2-1.0); CALCIUM 8.9 mg/dL (8.5-10.1); CARBON DIOXIDE 25 mmol/L (21-32); CHLORIDE 105 mmol/L (98-107); CREATININE 1.7 mg/dL (0.6-1.3); GLUCOSE 170 mg/dL (74-106); MAGNESIUM 2.1 mg/dL (1.8-2.4); PHOSPHOROUS 3.8 mg/dL (2.5-4.9); SODIUM SERUM 139 mmol/L (136-145); TOTAL PROTEIN, SERUM 6.4 g/dL (6.4-8.2); UREA NITROGEN, BLOOD 47 mg/dL (7-18)
[2023-09-26 08:00] VITALS: BP 143/55; TEMP 97.6; O2SAT 97
[2023-09-26] MEDS: GLIMEPIRIDE 2 MG TABLET PO SCH (08:38)
[2023-09-26 12:04] VITALS: BP 130/52; TEMP 98.2; O2SAT 98
[2023-09-26 16:00] VITALS: BP 142/48; TEMP 98.6; O2SAT 97
[2023-09-26 20:16] VITALS: BP 182/74; TEMP 98.2; O2SAT 93
[2023-09-27] VITALS (8 sets, daily range): BP systolic 132–182; BP diastolic 45–66; TEMP 97.8–98.8; O2SAT 93–97
[2023-09-27 07:04] LABS: BASOPHILS % (AUTO) 0.7 % (0.0-2.0); EOSINOPHILS % (AUTO) 0.3 % (0.0-7.0); HEMATOCRIT 25.8 % (31.2-41.9); HEMOGLOBIN 8.8 g/dL (10.9-14.3); LYMPHOCYTES # (AUTO) 0.6 K/uL (0.8-4.8); LYMPHOCYTES % (AUTO) 17.9 % (20.5-51.5); MEAN CORPUSCULAR HEMOGLOBIN 28.7 uug (24.7-32.8); MEAN CORPUSCULAR HGB CONC 34 g/dL (32.3-35.6); MEAN CORPUSCULAR VOLUME 84.7 fL (75.5-95.3); MONOCYTES # (AUTO) 0.2 K/uL (0.1-1.30); NEUTROPHILS # (AUTO) 2.8 K/uL (1.8-8.9); NEUTROPHILS % (AUTO) 76.1 % (38.5-71.5); PLATELET COUNT (AUTO) 225 K/uL (179-408); RED BLOOD CELL COUNT(AUTO) 3.05 MIL/uL (3.63-4.92); WHITE BLOOD COUNT (AUTO) 3.6 K/uL (3.8-11.8)
[2023-09-27 07:46] LABS: DIFFERENTIAL COMMENT 1
[2023-09-27] MEDS: DILTIAZEM HCL CD 240 MG CAP.SR.24H PO SCH (09:04)
[2023-09-27] MEDS: AMLODIPINE 5 MG TABLET PO SCH (20:43)
[2023-09-28 00:03] VITALS: BP 109/65; TEMP 98.4; O2SAT 97
[2023-09-28 06:05] VITALS: BP 154/43; TEMP 97.9; O2SAT 97
[2023-09-28 07:33] VITALS: BP 139/56; TEMP 98; O2SAT 97
[2023-09-28] MEDS: DILTIAZEM HCL CD 180 MG CAP.SR.24H PO SCH (08:34)
[2023-09-28] MEDS: PROTEIN SUPPLEMENT (PROSTAT) 30 ML LIQUID PO SCH (08:36)
[2023-09-28] MEDS ORDERED: DILTIAZEM HCL CD 240 MG CAP.SR.24H PO SCH (09:00)
[2023-09-28] MEDS ORDERED: DILT180C66 PO (09:06)
[2023-09-28] MEDS ORDERED: APIX5TAB4 PO (09:09)
[2023-09-28] MEDS ORDERED: AMOX-430 PO (09:09)
[2023-09-28] MEDS ORDERED: APIX5TAB PO (09:09)
[2023-09-28 11:46] VITALS: BP 144/52; TEMP 97.6; O2SAT 98
[2023-09-28 12:07] LABS: ADENOVIRUS Not Detected (Not Detected); CORONAVIRUS 229E Not Detected (Not Detected); CORONAVIRUS HKU1 Not Detected (Not Detected); CORONAVIRUS NL63 Not Detected (Not Detected); CORONAVIRUS OC43 Not Detected (Not Detected); NP BORDETELLA PERTUSIS Not Detected (Not Detected); NP CHLAMYDOPHILA PNEUMONIAE Not Detected (Not Detected); NP HUMAN METAPNEUMOVIRUS Not Detected (Not Detected); NP HUMAN RHINO/ENTERO VIRUS Not Detected (Not Detected); NP INFLUENZA A Not Detected (Not Detected); NP INFLUENZA A/H1 Not Detected (Not Detected); NP INFLUENZA A/H1-2009 Not Detected (Not Detected); NP INFLUENZA A/H3 Not Detected (Not Detected); NP INFLUENZA B Not Detected (Not Detected); NP MYCOPLASMA PNEUMONIAE Not Detected (Not Detected); NP PARAINFLUENZA 1 Not Detected (Not Detected); NP PARAINFLUENZA 2 Not Detected (Not Detected); NP PARAINFLUENZA 3 Not Detected (Not Detected); NP PARAINFLUENZA 4 Not Detected (Not Detected); NP RESPIRATORY SYNCYTIAL VIRUS Not Detected (Not Detected)
[2023-09-28 14:34] LABS: BASOPHILS % (AUTO) 0.3 % (0.0-2.0); EOSINOPHILS % (AUTO) 0.3 % (0.0-7.0); HEMATOCRIT 28.1 % (31.2-41.9); HEMOGLOBIN 9.4 g/dL (10.9-14.3); LYMPHOCYTES # (AUTO) 0.5 K/uL (0.8-4.8); MEAN CORPUSCULAR HEMOGLOBIN 28.2 uug (24.7-32.8); MEAN CORPUSCULAR HGB CONC 34 g/dL (32.3-35.6); MEAN CORPUSCULAR VOLUME 84.2 fL (75.5-95.3); MONOCYTES # (AUTO) 0.2 K/uL (0.1-1.30); NEUTROPHILS # (AUTO) 3.3 K/uL (1.8-8.9); NEUTROPHILS % (AUTO) 82.4 % (38.5-71.5); PLATELET COUNT (AUTO) 254 K/uL (179-408); RED BLOOD CELL COUNT(AUTO) 3.34 MIL/uL (3.63-4.92); RED CELL DISTRIBUTION WIDTH 15.3 % (12.3-17.7); WHITE BLOOD COUNT (AUTO) 4.1 K/uL (3.8-11.8)
[2023-09-28 14:38] LABS: DIFFERENTIAL COMMENT 1
[2023-09-28 16:00] VITALS: BP 150/58; TEMP 97.6; O2SAT 98
[2023-09-28 20:00] VITALS: BP 139/61; TEMP 98.5; O2SAT 94
[2023-09-28] MEDS: SIMETHICONE 80 MG TAB.CHEW PO PRN (20:44)
[2023-09-29] VITALS: BP 121/46; TEMP 98.7; O2SAT 92
[2023-09-29 04:00] VITALS: BP 180/55; TEMP 98.2; O2SAT 93
[2023-09-29 07:08] LABS: EOSINOPHILS % (AUTO) 0.3 % (0.0-7.0); HEMATOCRIT 26.1 % (31.2-41.9); LYMPHOCYTES # (AUTO) 0.6 K/uL (0.8-4.8); LYMPHOCYTES % (AUTO) 15.7 % (20.5-51.5); MEAN CORPUSCULAR HGB CONC 35 g/dL (32.3-35.6); MEAN CORPUSCULAR VOLUME 83.9 fL (75.5-95.3); MONOCYTES # (AUTO) 0.3 K/uL (0.1-1.30); MONOCYTES % (AUTO) 6.9 % (0.0-11.0); NEUTROPHILS # (AUTO) 2.8 K/uL (1.8-8.9); NEUTROPHILS % (AUTO) 76.1 % (38.5-71.5); PLATELET COUNT (AUTO) 243 K/uL (179-408); WHITE BLOOD COUNT (AUTO) 3.7 K/uL (3.8-11.8)
[2023-09-29 07:11] VITALS: BP 127/47
[2023-09-29 07:16] LABS: DIFFERENTIAL COMMENT 1
[2023-09-29 07:18] LABS: ALANINE AMINOTRANSFERASE 14 U/L (14-59); ALBUMIN 1.8 g/dL (3.4-5.0); ALKALINE PHOSPHATASE 68 U/L (50-136); ASPARTATE AMINOTRANSFERASE 16 U/L (15-37); BILIRUBIN,TOTAL 0.5 mg/dL (0.2-1.0); CALCIUM 8.6 mg/dL (8.5-10.1); CARBON DIOXIDE 23 mmol/L (21-32); CHLORIDE 106 mmol/L (98-107); CREATININE 1.7 mg/dL (0.6-1.3); GLUCOSE 171 mg/dL (74-106); SODIUM SERUM 141 mmol/L (136-145); TOTAL PROTEIN, SERUM 6.4 g/dL (6.4-8.2); UREA NITROGEN, BLOOD 50 mg/dL (7-18)
[2023-09-29 07:23] LABS: POTASSIUM 4.1 mmol/L (3.5-5.1)
[2023-09-29 08:00] VITALS: BP 130/58; TEMP 98; O2SAT 94
[2023-09-29 12:07] VITALS: BP 147/55; TEMP 98.5; O2SAT 93
[2023-09-29 16:05] VITALS: BP 117/53; TEMP 98.6; O2SAT 93
[2023-10-02 08:00] VITALS: BP 116/53; TEMP 97.6; O2SAT 96
== END 2023-09-29 18:15 | disposition home health service (06) | DRG 871 ==
LOC: ER 10:39 → EDSEX 10:39 → TELE3 20:34 → TELE-TD3 09-17 07:33 → MEDSURG3 09-17 08:51 → TELE-TD3 09-17 08:51 → TELE3 09-17 08:54 → DOU3 09-17 08:57 → TELE-TD3 09-19 13:36 → TELE3 09-22 09:48
PROVIDERS: ADMIT Nurse Practitioner Family; ATTEND Internal Medicine
PROC: 05HC33Z Insertion of Infusion Device into Left Basilic Vein, Percutaneous Approach (ICD-10-PCS; principal; 2023-09-17)
PROC: B54NZZA Ultrasonography of Left Upper Extremity Veins, Guidance (ICD-10-PCS; 2023-09-17)
PROC: 06HN33Z Insertion of Infusion Device into Left Femoral Vein, Percutaneous Approach (ICD-10-PCS; 2023-09-21)
PROC: B54CZZA Ultrasonography of Left Lower Extremity Veins, Guidance (ICD-10-PCS; 2023-09-21)
DX: A41.3 Sepsis due to Hemophilus influenzae (principal); E43 Unspecified severe protein-calorie malnutrition; I21.A1 Myocardial infarction type 2; J15.9 Unspecified bacterial pneumonia; J96.01 Acute respiratory failure with hypoxia; N17.0 Acute kidney failure with tubular necrosis; J69.0 Pneumonitis due to inhalation of food and vomit; I50.21 Acute systolic (congestive) heart failure; D61.818 Other pancytopenia; D68.59 Other primary thrombophilia; J90 Pleural effusion, not elsewhere classified; I48.92 Unspecified atrial flutter; I82.A12 Acute embolism and thrombosis of left axillary vein; I82.612 Acute embolism and thrombosis of superficial veins of left upper extremity; I13.0 Hypertensive heart and chronic kidney disease with heart failure and stage 1 through stage 4 chronic kidney disease, or unspecified chronic kidney disease; D50.9 Iron deficiency anemia, unspecified; Z74.09 Other reduced mobility; E11.65 Type 2 diabetes mellitus with hyperglycemia; E78.5 Hyperlipidemia, unspecified; E86.0 Dehydration; E88.09 Other disorders of plasma-protein metabolism, not elsewhere classified; I48.0 Paroxysmal atrial fibrillation; Z90.49 Acquired absence of other specified parts of digestive tract; Z79.84 Long term (current) use of oral hypoglycemic drugs; Z85.3 Personal history of malignant neoplasm of breast; R53.1 Weakness; D69.6 Thrombocytopenia, unspecified; E88.9 Metabolic disorder, unspecified; N25.0 Renal osteodystrophy; H91.90 Unspecified hearing loss, unspecified ear; K57.90 Diverticulosis of intestine, part unspecified, without perforation or abscess without bleeding; M45.9 Ankylosing spondylitis of unspecified sites in spine; N63.11 Unspecified lump in the right breast, upper outer quadrant; E66.9 Obesity, unspecified; Z68.25 Body mass index [BMI] 25.0-25.9, adult; Z20.822 Contact with and (suspected) exposure to COVID-19; E11.22 Type 2 diabetes mellitus with diabetic chronic kidney disease
CPT/HCPCS: 36415; 36600; 70030-TC; 71045; 71250; 76641-TC; 76770; 78580; 82378; 82533; 82747; 82784; 82803; 83010; 83550; 83605; 83615; 83735; 83970; 84100; 84155; 84165; 84300; 84443; 84484; 85014; 85018; 85025; 85730; 86038; 86140; 86300; 86334; 86430; 86706; 86803; 86880; 87040; 87077; 87340; 87806; 88185; 93005; 93307; 94640; 99082-TC; A4606; A4663; A9540; C1758; G0378; J0282; J0692; J0696; J1650; J1815; J1956; J2270; J2405; J2543; J2916; J3370; J3490; J3590; J7040; J7050; J7120; Q9967